=== PATIENT | male | born 1945 | race Hispanic/Latino ===

== ENCOUNTER 2019-08-05 00:24 | Emergency (ER) | payer MEDICARE | END 2019-08-05 06:52 | disposition home or self-care (01) | LOC: EDH 00:24 | DX: U07.1 COVID-19 (principal); J12.89 Other viral pneumonia; R50.9 Fever, unspecified; I10 Essential (primary) hypertension; E78.00 Pure hypercholesterolemia, unspecified; Z90.49 Acquired absence of other specified parts of digestive tract | CPT/HCPCS: 36415; 71045; 80053; 81001; 82550; 82728; 83605 ×2; 83874; 84145; 84484; 85025; 85378; 85610; 85730; 87040 ×2; 87088; 87633; 87804 ×2; 93005; 99285; U0003 ==

== ENCOUNTER 2019-11-17 13:30 | Observation (INO) | payer MEDICARE, OTHER ==
[~2019-11-17] VITALS: Ht 170.2 cm; Wt 79.8 kg
[2019-11-17 14:49] LABS: BASOPHILS % (AUTO) 0.6 % (0.0-5.0); EOSINOPHILS % (AUTO) 2.2 % (0.0-8.0); HEMATOCRIT 37.7 % (42-54); LYMPHOCYTES % (AUTO) 23.4 % (21.0-51.0); MEAN CORPUSCULAR HEMOGLOBIN 24.4 pg (27.0-33.0); MEAN CORPUSCULAR HGB CONC 31.3 g/dL (32.0-36.0); MEAN CORPUSCULAR VOLUME 78.1 fL (79-99); MONOCYTES % (AUTO) 7.2 % (3.0-13.0); NEUTROPHILS % (AUTO) 66.4 % (40.0-77.0); PLATELET COUNT (AUTO) 271 K/uL (130-400); RED BLOOD CELL COUNT(AUTO) 4.83 MIL/uL (4.50-6.20); RED CELL DISTRIBUTION WIDTH 15.9 % (11.0-15.5)
[2019-11-17 14:54] LABS: PARTIAL THROMBOPLASTIN TIME 20.5 SEC (26.3-35.5); PROTHROMBIN TIME 10.8 SEC (9.6-11.6)
[2019-11-17 15:11] LABS: CREATININE 1.3 mg/dL (0.5-1.5); POTASSIUM 3.1 mmol/L (3.5-5.1)
[2019-11-17 15:15] LABS: ALBUMIN 3.6 g/dL (3.5-5.0); BILIRUBIN,TOTAL 0.4 mg/dL (0.2-1.0); TOTAL PROTEIN, SERUM 8.4 g/dL (6.0-8.3)
[2019-11-17] MEDS ORDERED: POTASSIUM CHLORIDE 10% ELIXIR 20 MEQ/15 ML UDCUP ONE (15:29)
[2019-11-17] MEDS ORDERED: CEFTRIAXONE SODIUM 1 GM ONE ×2 (15:30→22:24)
[2019-11-17] MEDS ORDERED: IOHEXOL-350 75 ML VIAL IV ONE (15:42)
[2019-11-17] MEDS ORDERED: ASPIRIN 81MG TAB.CHEW ONE (16:35)
[2019-11-17] MEDS ORDERED: NITROGLYCERIN 1GM/1 INCH PACKET TD ONE (16:36)
[2019-11-17 17:41] LABS: APPEARANCE,URINE Clear (CLEAR); BILIRUBIN,URINE Small (NEGATIVE); COLOR,URINE Dark Yellow (YELLOW); GLUCOSE, URINE (UA) Negative (NEGATIVE); KETONES,URINE Negative (NEGATIVE); LEUKOCYTE ESTERASE ,URINE Trace (NEGATIVE); NITRATE,URINE Negative (NEGATIVE); OCCULT BLOOD,URINE Negative (NEGATIVE); PH,URINE 6.5 (5.0-8.0); PROTEIN,URINE Trace mg/dL (NEGATIVE)
[2019-11-17 17:53] LABS: RBC,URINE 0-1 /HPF (0-1)
[2019-11-17 17:55] LABS: BACTERIA,URINE Few /HPF (None Seen)
[2019-11-17 17:56] LABS: MUCUS,URINE Few LPF (None Seen); SQUAMOUS EPITHELIAL CELL,UR Rare /HPF (0-2)
[2019-11-17] MEDS ORDERED: SODIUM CHLORIDE 0.9% 1000ML 1,000 ML IV SCH (22:00)
[2019-11-17] MEDS ORDERED: DIPHENHYDRAMINE HCL 25 MG CAPSULE PO PRN (22:00)
[2019-11-17] MEDS ORDERED: ONDANSETRON HCL 4 MG/2 ML VIAL IV PRN (22:00)
[2019-11-17] MEDS ORDERED: ERGOCALCIFEROL (VITAMIN D2) 50,000 UNIT CAPSULE PO ONE (22:00)
[2019-11-17] MEDS ORDERED: ACETAMINOPHEN 325 MG TAB PO PRN ×2 (22:00)
[2019-11-17] MEDS ORDERED: NITROGLYCERIN 0.4 MG SL TAB SL PRN (22:00)
[2019-11-17 22:12] LABS: AMPHET/METH SCREEN,URINE NEGATIVE (NEGATIVE); BARBITURATE SCREEN, URINE NEGATIVE (NEGATIVE); BENZODIAZEPINES SCREEN,URINE NEGATIVE (NEGATIVE); CANNABINOID SCREEN,URINE NEGATIVE (NEGATIVE); COCAINE SCREEN,URINE NEGATIVE (NEGATIVE); OPIATE SCREEN,URINE NEGATIVE (NEGATIVE); PHENCYCLIDINE SCREEN,URINE NEGATIVE (NEGATIVE)
[2019-11-17 22:14] LABS: LACTATE DEHYDROGENASE 252 U/L (81-234)
[2019-11-17] MEDS ORDERED: ALBUTEROL INHALER 90MCG/INH IH PRN (22:15)
[2019-11-17] MEDS ORDERED: ENOXAPARIN SODIUM 40 MG/0.4 ML SYRINGE SQ ONE (22:24)
[2019-11-18] MEDS ORDERED: SENNOSIDES 8.6 MG TABLET ONE (04:26)
[2019-11-18 06:57] LABS: BASOPHILS % (AUTO) 0.6 % (0.0-5.0); EOSINOPHILS % (AUTO) 2.1 % (0.0-8.0); HEMATOCRIT 35.1 % (42-54); LYMPHOCYTES % (AUTO) 19.5 % (21.0-51.0); MEAN CORPUSCULAR HEMOGLOBIN 24.7 pg (27.0-33.0); MEAN CORPUSCULAR HGB CONC 31.1 g/dL (32.0-36.0); MEAN CORPUSCULAR VOLUME 79.4 fL (79-99); MONOCYTES % (AUTO) 7.4 % (3.0-13.0); NEUTROPHILS % (AUTO) 70.2 % (40.0-77.0); PLATELET COUNT (AUTO) 257 K/uL (130-400); RED BLOOD CELL COUNT(AUTO) 4.42 MIL/uL (4.50-6.20); RED CELL DISTRIBUTION WIDTH 15.9 % (11.0-15.5)
[2019-11-18 07:25] LABS: ALANINE AMINOTRANSFERASE 32 U/L (12-78); ALBUMIN 3.4 g/dL (3.5-5.0); ASPARTATE AMINOTRANSFERASE 28 U/L (10-37); BILIRUBIN,TOTAL 0.5 mg/dL (0.2-1.0); CARBON DIOXIDE 29 mmol/L (21-32); CHLORIDE 100 mmol/L (101-111); CHOLESTEROL 149 mg/dL (<200); CREATINE KINASE, TOTAL 157 U/L (21-232); CREATININE 1.2 mg/dL (0.5-1.5); GLOMERULAR FILTR. RATE CALC 63 mL/min (>60); GLUCOSE,RANDOM 119 mg/dL (70-105); HDL CHOLESTEROL 26 mg/dL (29-71); LACTATE DEHYDROGENASE 146 U/L (81-234); LDL DIRECT 103 mg/dL (0-99); MYOGLOBIN 140 ng/mL (10-92); SODIUM SERUM 138 mmol/L (136-145); TOTAL PROTEIN, SERUM 7.9 g/dL (6.0-8.3); TRIGLYCERIDES 136 mg/dL (30-200); TROPONIN I < 0.04 ng/mL (0.00-0.06); UREA NITROGEN, BLOOD 21 mg/dL (7-18)
[2019-11-18 07:28] LABS: POTASSIUM 2.9 mmol/L (3.5-5.1)
[2019-11-18] MEDS ORDERED: POTASSIUM CHLORIDE 20MEQ/100ML 100 ML IV ONE ×2 (07:46→12:11)
[2019-11-18] MEDS ORDERED: FAMOTIDINE/PF 20 MG/2 ML VIAL IV ONE (08:54)
[2019-11-18] MEDS: ASCORBIC ACID 500 MG TAB PO SCH (09:00)
[2019-11-18] MEDS: ZINC SULFATE 220 CAPSULE PO SCH (09:00)
[2019-11-18] MEDS: ASPIRIN 81 MG EC TAB PO SCH (09:00)
[2019-11-18] MEDS: FAMOTIDINE/PF 20 MG/2 ML VIAL IV SCH (09:00)
[2019-11-18] MEDS: ENOXAPARIN SODIUM 40 MG/0.4 ML SYRINGE SQ SCH (09:00)
[2019-11-18] MEDS ORDERED: CEFTRIAXONE SODIUM 1 GM IV SCH (09:00)
[2019-11-18] MEDS ORDERED: ONDANSETRON HCL 4 MG/2 ML VIAL ONE (09:28)
[2019-11-18] MEDS ORDERED: MAG HYDROX/AL HYDROX/SIMETH ES 30 ML SUSP UDCUP ONE (09:52)
[2019-11-18] MEDS ORDERED: ASPIRIN 81MG TAB.CHEW ONE (10:13)
[2019-11-18] MEDS ORDERED: ACETYLCYSTEINE 600 MG CAPSULE ONE ×2 (10:14→19:58)
[2019-11-18] MEDS ORDERED: ASCORBIC ACID 500 MG TAB ONE (10:14)
[2019-11-18] MEDS ORDERED: ZINC SULFATE 220 CAPSULE ONE (10:14)
[2019-11-18] MEDS ORDERED: CEFTRIAXONE SODIUM 1 GM ONE (10:15)
[2019-11-18] MEDS ORDERED: ENOXAPARIN SODIUM 40 MG/0.4 ML SYRINGE SQ ONE (10:15)
[2019-11-18] MEDS ORDERED: SODIUM CHLORIDE 0.9% 100 ML IV ONE (10:16)
[2019-11-18] MEDS ORDERED: POTASSIUM CHLORIDE 10MEQ/100ML 100 ML IV PRN (11:15)
[2019-11-18] MEDS ORDERED: POTASSIUM CHLORIDE 10% ELIXIR 20 MEQ/15 ML UDCUP PO PRN (11:15)
[2019-11-18] MEDS ORDERED: LIDOCAINE HCL-MPF 1% 2ML VIAL IV PRN (11:15)
[2019-11-18] MEDS ORDERED: SODIUM CHLORIDE 0.9% 1000ML 1,000 ML IV ONE (17:23)
[2019-11-18] MEDS ORDERED: ALBUTEROL SULFATE 0.083% 2.5 MG/3 ML INH IH PRN (20:45)
[2019-11-18] MEDS: ACETYLCYSTEINE 600 MG CAPSULE PO SCH (21:00)
[2019-11-18 22:15] VITALS: BP 132/79
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
[2019-11-19] MEDS: MAG HYDROX/AL HYDROX/SIMETH ES 30 ML SUSP UDCUP PO PRN ×2 (01:49→12:47)
[2019-11-19 04:00] VITALS: BP 139/63
[2019-11-19 05:32] LABS: BASOPHILS % (AUTO) 0.8 % (0.0-5.0); HEMATOCRIT 32.6 % (42-54); LYMPHOCYTES % (AUTO) 24.3 % (21.0-51.0); MEAN CORPUSCULAR HEMOGLOBIN 24.6 pg (27.0-33.0); MEAN CORPUSCULAR HGB CONC 31.9 g/dL (32.0-36.0); MEAN CORPUSCULAR VOLUME 77.1 fL (79-99); MONOCYTES % (AUTO) 8.6 % (3.0-13.0); NEUTROPHILS % (AUTO) 64.1 % (40.0-77.0); PLATELET COUNT (AUTO) 257 K/uL (130-400); RED BLOOD CELL COUNT(AUTO) 4.23 MIL/uL (4.50-6.20); RED CELL DISTRIBUTION WIDTH 15.6 % (11.0-15.5); WHITE BLOOD COUNT (AUTO) 6.5 K/uL (4.8-10.8)
[2019-11-19 05:55] LABS: ALANINE AMINOTRANSFERASE 25 U/L (12-78); ALBUMIN 3.3 g/dL (3.5-5.0); ASPARTATE AMINOTRANSFERASE 24 U/L (10-37); BILIRUBIN,TOTAL 0.4 mg/dL (0.2-1.0); CARBON DIOXIDE 23 mmol/L (21-32); CHLORIDE 103 mmol/L (101-111); GLOMERULAR FILTR. RATE CALC 78 mL/min (>60); GLUCOSE,RANDOM 99 mg/dL (70-105); LACTATE DEHYDROGENASE 148 U/L (81-234); POTASSIUM 3.6 mmol/L (3.5-5.1); SODIUM SERUM 138 mmol/L (136-145); TOTAL PROTEIN, SERUM 7.4 g/dL (6.0-8.3); UREA NITROGEN, BLOOD 12 mg/dL (7-18)
[2019-11-19 08:00] VITALS: BP 140/84
--- NOTE | 2019-11-19 08:30 | NUR ---
PT UPDATE: PT IS ANXIOUS AND AGITATED REQUESTING TO TALK TO SOMEONE IN CHARGE AND IS WALKING TO NURSES STATION. PT IS UPSET THAT HE HAS NOT SEEN A DR TODAY AND UPSET ABOUT BEING ON A CLEAR LIQUID DIET ORDERED BY . PT WAS ASSISTED BACK TO ROOM BY JUWAN BECERRA PM NURSE. PT WAS INFORMED THAT CHARGE NURSE JUWAN MCBRIDE WOULD BE IN TO TALK TO HIM. REED MADE AWARE. PT REMOVED TELE AND PIV. JUWAN BECERRA AND MYSELF HAVE SPOKEN TO SISTER TANI (POA) AND GAVE A BRIEF UPDATE OF PT STATUS. PT TALKED TO SISTER. WILL CONTINUE TO MONITOR PT. PT IN BED, SIDE RAILS X2, WITH BED ALARM ACTIVATED.
[2019-11-19] MEDS: FAMOTIDINE/PF 20 MG/2 ML VIAL IV SCH (09:00)
[2019-11-19] MEDS ORDERED: FLU VACC QS2020-21(6MOS UP)/PF 60 MCG/0.5 ML ML IM ONE ×2 (09:00→21:55)
[2019-11-19] MEDS ORDERED: PNEUMOCOCCAL VACCINE POLYVALENT 0.5 ML/VIAL [PPV] IM ONE (09:00)
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
[2019-11-19 12:00] VITALS: BP 120/78
[2019-11-19] MEDS: ASPIRIN 81 MG EC TAB PO SCH (12:41)
[2019-11-19] MEDS: ZINC SULFATE 220 CAPSULE PO SCH (12:41)
[2019-11-19] MEDS: ACETYLCYSTEINE 600 MG CAPSULE PO SCH ×2 (12:41→20:51)
[2019-11-19] MEDS: ASCORBIC ACID 500 MG TAB PO SCH (12:41)
[2019-11-19] MEDS: ENOXAPARIN SODIUM 40 MG/0.4 ML SYRINGE SQ SCH (12:44)
[2019-11-19] MEDS: POTASSIUM CHLORIDE 20 MEQ ERTAB PO PRN ×2 (12:49→17:03)
--- NOTE | 2019-11-19 15:03 | NUR ---
RD NOTE Pt was admitted to hospital due to chest pain R/O ACS. Pt was placed on a CLD upon admission, as per EMR pt refused to eat and requested "real food", pt has been progressed to a heart healthy diet. RN was contacted, and pt consumed 100% of lunch on 11/19/19. As per EMR, Pt's last bowel movement was 11/15/19. Consider a stool softener when medically appropriate. Pt has low hgb and ferritin levels, if medically feasible consider an iron supplement. Continue current diet order and monitor po intake and tolerance. RD will continue to follow. Contact RD for any nutritional concerns. LABS: hgb 10.4, rbc 4.23, BG 99, ferritin 13, MCV 77.1, CRP 9.4, Alb 3.3, procalcitonin <0.05. Addendum: 11/19/19 at [address] Amended: Links added.
[2019-11-19 16:00] VITALS: BP 122/80
[2019-11-19 19:53] VITALS: BP 135/85
[2019-11-19] MEDS ORDERED: PNEUMOCOCCAL VACCINE POLYVALENT 0.5 ML/VIAL [PPV] ONE (21:49)
--- NOTE | 2019-11-19 22:20 | NUR ---
SISTER WAITING IN ER TO TAKE PATIENT BACK HOME. PATIENT AWAKE AND ALERT, DENIES PAIN, NO ACUTE DISTRESS NOTED. NO PIV NOTED. PATIENT WHEELED DOWN STAIRS VIA W/C.
== END 2019-11-19 22:20 | disposition home or self-care (01) ==
LOC: EDH 13:30 → INTOOBSV 20:20 → EDHIP 20:20 → 3DH 11-18 21:11
PROVIDERS: ADMIT Internal Medicine; ATTEND Internal Medicine
DX: R07.89 Other chest pain (principal); Z20.828 Contact with and (suspected) exposure to other viral communicable diseases; R79.1 Abnormal coagulation profile; R82.71 Bacteriuria; J44.9 Chronic obstructive pulmonary disease, unspecified; I12.9 Hypertensive chronic kidney disease with stage 1 through stage 4 chronic kidney disease, or unspecified chronic kidney disease; N18.30 Chronic kidney disease, stage 3 unspecified; E78.5 Hyperlipidemia, unspecified; E78.00 Pure hypercholesterolemia, unspecified; E87.6 Hypokalemia; Z23 Encounter for immunization; Z87.891 Personal history of nicotine dependence; Z90.49 Acquired absence of other specified parts of digestive tract; Z79.82 Long term (current) use of aspirin; Z79.899 Other long term (current) drug therapy
CPT/HCPCS: 36415 ×3; 71045; 71275; 80053 ×3; 80061; 80305; 81001; 82550 ×2; 82728 ×3; 82948 ×2; 83605; 83615 ×3; 83690; 83874; 84132; 84145 ×3; 84484 ×4; 85025 ×3; 85378 ×3; 85610; 85651; 85730; 86140 ×3; 87040 ×2; 87088; 87426; 90471; 90472; 90732; 93005 ×2; 93306; 93970; 94760 ×2; 96372; 99285; G0378 ×5; J0696 ×3; J1650 ×4; J2405; J3480 ×2; J3490 ×2; J7030; Q2035; Q9967; U0003